=== PATIENT | female | born 1955 | race Caucasian/White ===

== ENCOUNTER 2016-09-02 13:59 | Observation (INO) | payer BC ==
--- NOTE | 2016-09-02 15:11 | RAD ---
ANKLE-RIGHT 3 VIEW History: Fall with ankle pain. Comparison: None. Findings: Views of the right ankle were obtained. There is evidence of an oblique fracture of the distal right fibular metadiaphysis with overlapping of the fracture fragments. A markedly displaced transverse fracture is noted of the base of the medial malleolus with the distal tibial plafond and dislocated in a medial direction in relationship to its typical orientation adjacent to the talar dome. The talus itself appears to be appropriate. Anterior and posterior calcaneal enthesophytes are identified. Impression: 1. A displaced oblique distal right fibular metadiaphyseal fracture with overlapping of the fracture fragments. 2. A displaced transverse fracture of the base of the medial malleolus with medial dislocation of the distal tibial plafond to the adjacent talar dome. 3. Diffuse soft tissue swelling. 4. Anterior and posterior calcaneal spurs.
--- NOTE | 2016-09-02 15:54 | RAD ---
RIGHT KNEE 4 VIEWS HISTORY: Ground-level fall, right knee pain. Frontal, crosstable lateral, and bilateral oblique views of the right knee. COMPARISON: None. ALIGNMENT: Grossly unremarkable.. JOINT SPACES: Largely preserved. Moderate osteophyte formation.. JOINT EFFUSION: Trace effusion suggested.. CALCIFICATIONS: No abnormal calcifications noted. FRACTURE: No displaced acute fracture. IMPRESSION: Early osteoarthritic change of the right knee without displaced acute fracture, malalignment, or gross joint space narrowing. Trace joint effusion is evident.
[2016-09-02] MEDS ORDERED: HYDROMORPHONE HCL 1 MG/ML SYRINGE ONE (15:57)
[2016-09-02] MEDS ORDERED: BISACODYL 10 MG SUP PR PRN (19:11)
[2016-09-02] MEDS ORDERED: BLISTEX LIPSTICK 1 EACH TP PRN (19:11)
[2016-09-02] MEDS ORDERED: MENTHOL/CETYLPYRD 1 EACH LOZENGE PO PRN (19:11)
[2016-09-02] MEDS ORDERED: SODIUM CHLORIDE 0.9% 100 ML IV PRN (19:11)
[2016-09-02] MEDS ORDERED: BISACODYL 5 MG TABLET.EC PO PRN (19:11)
[2016-09-02] MEDS ORDERED: MAGNESIUM HYDROXIDE 30 ML UDCUP PO PRN (19:11)
[2016-09-02 19:37] LABS: ABSOLUTE NEUTROPHIL COUNT 10.5 K/mm3 (1.8-7.7); BASO % 0.2 % (0.2-1.0); EOS # 0.1 (0.0-0.5); EOS % 0.5 % (0.9-2.9); HEMATOCRIT 38.4 % (37.0-47.0); HEMOGLOBIN 12.9 gm/l (12.0-16.0); IMM NEUT% 0.3 % (0-1); LYMPH # 1.4 (1.0-4.8); LYMPH % 10.7 % (15-45); MEAN CELL VOLUME 88.9 fl (81.0-99.0); MEAN CORPUSCULAR HEMOGLOBIN 29.9 pg (27.0-31.0); MEAN CORPUSCULAR HGB CONC 33.6 g/dl (33.0-37.0); MEAN PLATELET VOLUME 8.9 fl (7.4-10.4); MONO # 0.7 (0.0-0.8); MONO % 5.5 % (4-12); NEUT % 82.8 % (43-75); PLATELET COUNT 255 K/mm3 (130-400); RED CELL DISTRIBUTION WIDTH 13.2 % (11.5-14.5)
[2016-09-02 20:03] LABS: CALCIUM 9.2 mg/dL (8.6-10.3)
[2016-09-02 20:10] LABS: INR 1.05
[2016-09-02] MEDS ORDERED: HYDROMORPHONE HCL 2 MG/ML SYRINGE IV ONE (20:12)
[2016-09-02] MEDS: CARVEDILOL 25 MG TABLET PO SCH (20:25)
[2016-09-02] MEDS: DOCUSATE SODIUM 100 MG CAPSULE PO SCH (20:25)
[2016-09-02] MEDS: OXYCODONE HCL 5 MG TABLET PO PRN ×2 (20:26→22:24)
[2016-09-02] MEDS: ACETAMINOPHEN 325 MG TABLET PO PRN (20:26)
[2016-09-02 20:38] VITALS: BMI 57.7
[2016-09-02] MEDS ORDERED: HYDROMORPHONE HCL 2 MG/ML SYRINGE IV PRN (21:21)
[2016-09-03] MEDS: ACETAMINOPHEN 325 MG TABLET PO PRN (02:41)
[2016-09-03] MEDS: OXYCODONE HCL 5 MG TABLET PO PRN ×5 (02:41→23:23)
--- NOTE | 2016-09-03 07:45 | HP ---
Eleni Rojas : 1955 CHIEF COMPLAINT: Ankle pain. HISTORY OF PRESENT ILLNESS: The patient was preparing to go to [place] to complete her moving preparations from [place] to [place] today. She had her dogs on their leashes and they were walking down the front concrete stairs outside of her home and she fell on the last to second stair. She landed on her leg with the ankle rolled and she had instant pain. She was unable to bear weight due to the pain and called EMS who transported her to the emergency department. In the emergency department she was found to have a trimalleolar fracture. She has no other complaints today except for the ankle pain. She denies any lightheadedness, dizziness, chest pain, or shortness of breath prior to the fall. She did not blackout. REVIEW OF SYSTEMS: General: No fever or chills. ENT: No congestion or throat pain. Cardiovascular: Denies chest pain or pressure. Respiratory: No difficulty in breathing, shortness of breath, or cough. Abdomen: No nausea, vomiting, or abdominal pain. Musculoskeletal: Ankle pain. Neurologic: No lightheadedness or dizziness. No numbness or tingling. PAST MEDICAL HISTORY: Includes cardiomyopathy and hypertension. Uterine cancer in 1993. PAST SURGICAL HISTORY: Hysterectomy, cholecystectomy, and a recent abdominal hernia repair. ALLERGIES: None. MEDICATIONS: Include: 1. Carvedilol. 2. Lisinopril. 3. Spironolactone. 4. Furosemide. 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. She is moving up here to be with her sister. She had never been . No children. Never has had any alcohol or tobacco use. She will be residing in a modular home on her sisters property in [place] when she completes her move. FAMILY MEDICAL HISTORY: Noncontributory. There has been no early fractures in older relatives to indicate a risk factor for osteoporosis. PHYSICAL EXAMINATION: VITAL SIGNS: Temperature 98.9, blood pressure 152/74, heart rate 68. saturating 98% on room air. GENERAL: Alert and oriented in no acute distress, cooperative, conversant, morbidly obese. HEENT: Normocephalic, atraumatic. No tenderness to palpation. Her mucous membranes are moist. Pupils are equal, round, and reactive. Her extraocular muscles are intact. There is no scleral icterus or conjunctival injection. NECK: Supple. Trachea midline. CARDIOVASCULAR: Positive S1, S2. It is regular. She has faint palpable pulses bilaterally radially. She has brisk capillary refill bilateral toes. Heart rate is quiet and distant. RESPIRATORY: Clear to auscultation bilaterally. No rhonchi or wheezing. ABDOMEN: Soft, nontender, no distention, rebound, no guarding. MUSCULOSKELETAL: Moving upper extremities and left lower extremity without difficulty. Right lower extremity with splint to knee. Knee proximal is nontender. She can wiggle her toes in the splint. NEUORLOGIC: She is alert and oriented. LABORATORY STUDIES: Not obtained in the emergency department. DIAGNOSTICS: Ankle x-ray shows displaced oblique distal right fibular metadiaphyseal fracture with overlapping fracture fragments, displaced transverse fracture of the base of the medial malleolus with medial dislocation of the distal tibular, diffuse soft tissue swelling, anterior and posterior calcaneal spurs. Right knee x-ray showed early osteoarthritic change without displaced acute fracture, malalignment, or gross joint space narrowing, trace effusion evident. ASSESSMENT AND PLAN: 1. This is a 61-year-old female with acute trimalleolar fracture who is unable to ambulate on crutches and uncomfortable going home alone. Being admitted for monitoring and orthopedic consult for surgical planning. We will obtain laboratory studies and an EKG. Without history of tobacco smoke or prior lung disease will not obtain chest x-ray at this time. With the patient's history of cardiomyopathy she has a known EKG abnormality and she was evaluated in May for it by her cell biologist for surgical planning for her hernia repair. We will obtain medical records from her cell biologist to help with surgical planning and preoperative evaluation. Appreciate orthopedic consult. 2. Cardiomyopathy. We will continue her home medications. Prior echocardiogram shows an ejection fraction of 45%. She had surgical preoperative evaluation from her cell biologist in May for hernia repair. We will obtain his most recent office records. 3. Hypertension. Slightly elevated on exam today, it could be due to pain and not taking her evening medication as of yet. Medications include aspirin along with the others. 4. Morbid obese. Complicates medical care with rehabilitation needs and cares. JOB: [id number]
[2016-09-03] MEDS ORDERED: POLYETHYLENE GLYCOL 3350 17 G POWD.SUSP PO PRN (07:54)
--- NOTE | 2016-09-03 08:21 | PDOC36 ---
Provider Note Note: 61 yo female with GLF yesterday afternoon sustaining right ankle fx/ dislocation. This was treated in ER with closed reduction and immobilization. She was admitted to Hospitalist service to assist with placement issues and I was asked to see her with respect to orthopedic management. Seen/Examined- consult note dictated Imp- right ankle fx/dislocation Plan- needs post reduction xrays which will be done this AM to assure adequate reduction injury discussed- will need ORIF when soft tissues will accommodate. may need ICF depending on mobility will check in office next week
--- NOTE | 2016-09-03 08:21 | PDOC43 ---
- Subjective Chief Complaint: ankle fracture Patient awake, her leg is painful and she did not get any sleep. Her silva is sore from the fall. She denies any chest pain, abdominal pain or shortness of breath. Subjective: Reports Urinating Without Difficulty, Denies Pain Tolerable, Denies Shortness of Breath, Denies Cough, Denies Chest Pain, Denies Abdominal Pain, Denies Nausea, Denies Vomiting - Objective Vital Signs Temperature 98.6 F 09/03/16 07:37 Pulse Rate 77 09/03/16 07:37 Respiratory Rate 20 09/03/16 07:37 Blood Pressure 126/64 09/03/16 07:37 O2 Saturation by Pulse Oximetry 98 09/03/16 07:37 Oxygen Delivery Method Room Air Oxygen Flow Rate 0 Intake and Output 09/01/16 09/02/16 09/03/16 23:59 23:59 23:59 Intake Total 450 Balance 450 General: Alert, Oriented x3, Cooperative, Other (morbidly obese), No Acute Distress HEENT: Atraumatic, PERRLA, EOMI, Mucous membr. moist/pink Lungs: Clear to Auscultation Bilaterally, Normal Air Movement Cardiovascular: Regular Rate and Rhythm, Normal S1, Normal S2 (distant, toes with brisk capillary refill) Abdomen: Soft, Non-Distended, No Rigid, No Tenderness, No Rebounding Extremities: Tenderness, Other (RLE with splint, toes mobile), No Cyanosis, No Edema Neurological: Normal Speech, Other (sensation intact in right toes) Psych/Mental Status: Normal Mood Laboratory 09/02/16 19:28 09/02/16 19:28 09/02/16 19:28 Estimated GFR 102 H Current Medications: Current meds reviewed in EMR. - Problems: Assessment/Plan (1) Bimalleolar fracture of right ankle Qualifiers: Encounter type: initial encounter Fracture type: closed Qualifier Code: (S82.841A) Displaced bimalleolar fracture of right lower leg, initial encounter for closed fracture Status: AcuteAssessment/Plan: following a fall. She tripped over one her dogs while walking down stairs. She is low risk for osteoporosis but will need to F/U as an outpatient surgical planning with orthopedics. LAbs and EKG obtained overnight. DC planning following PT/OT evaluation if she can return home with knee scooter or need SNIF. She cannot tolerate the use of crutches (2) Cardiomyopathy Qualifiers: Cardiomyopathy type: unspecified Qualifier Code: (I42.9) Cardiomyopathy , unspecified Status: ChronicAssessment/Plan: with known EKG changes. Maintain home medications. 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
--- NOTE | 2016-09-03 10:24 | RAD ---
ANKLE-RIGHT 3 VIEW COMPARISON: Right ankle 3 views, 09/02/2016 HISTORY: Right ankle displaced bimalleolar fracture. FINDINGS Views: Right ankle AP, mortise, lateral. Bones: No change. Lateral bimalleolar fracture dislocation. Joints: Asymmetry of the ankle joint Soft tissues: Normal IMPRESSION: 1. No change. Laterally displaced bimalleolar fracture dislocation of the right ankle.
[2016-09-03] MEDS: LISINOPRIL 20 MG TABLET PO SCH (10:27)
[2016-09-03] MEDS: SPIRONOLACTONE 25 MG TABLET PO SCH (10:27)
[2016-09-03] MEDS: FUROSEMIDE 20 MG TABLET PO SCH (10:28)
[2016-09-03] MEDS: ASPIRIN (ENTERIC COATED) 81 MG TABLET.EC PO SCH (10:28)
[2016-09-03] MEDS: CARVEDILOL 25 MG TABLET PO SCH ×2 (10:28→20:27)
[2016-09-03] MEDS: DOCUSATE SODIUM 100 MG CAPSULE PO SCH ×2 (10:28→20:28)
[2016-09-03] MEDS: LACTATED RINGERS 1,000 ML IV SCH (10:31)
[2016-09-03] MEDS ORDERED: PUMP TUBING ONE (10:33)
[2016-09-03] MEDS ORDERED: LACTATED RINGERS 1,000 ML ONE ×2 (11:58→13:49)
[2016-09-03] MEDS ORDERED: IV START KIT ONE ×2 (11:59→22:13)
[2016-09-03] MEDS ORDERED: PROPOFOL 20 ML IV ONE ×2 (12:30→13:00)
[2016-09-03] MEDS ORDERED: KETAMINE HCL UD SYRINGE 100 MG/2 ML IV ONE (12:30)
--- NOTE | 2016-09-03 13:12 | PCMBPN ---
Brief Post Op Note: Date of Procedure: 09/03/16 Start Time: 1245 Preoperative Diagnosis: 1. right ankle fracture Postoperative Diagnosis: 1. Same Procedure: closed reduction and splinting of right ankle fracture Surgeon: Milton Jessica MD Assist: Shade Starkey PA-C Anesthesia: Abe Kaur Findings: ankle reduced and splinted, stable Condition: stable to floor Complications: none IV Fluids: 500 mLs of LR Urine Output: 0 mLs Estimated Blood Loss: 0 mLs Tourniquet Time: 0 Specimens: none Implants: none; L&U plaster splint Drains: none Milton Jessica MD
[2016-09-03] MEDS ORDERED: FENTANYL 100 MCG/2 ML VIAL ONE ×3 (13:13→13:32)
[2016-09-03] MEDS ORDERED: HYDROMORPHONE HCL 2 MG/ML SYRINGE ONE (13:21)
[2016-09-03] MEDS ORDERED: KETOROLAC TROMETHAMINE 30 MG/ML 1 ML VIAL ONE (13:22)
[2016-09-03] MEDS ORDERED: ONDANSETRON 4 MG/2ML 2 ML VIAL IV PRN (13:28)
[2016-09-03] MEDS ORDERED: PROMETHAZINE HCL 25 MG/ML VIAL IM PRN (13:28)
[2016-09-03] MEDS ORDERED: ATROPINE SULFATE 0.4 MG/1 ML VIAL IV PRN (13:28)
[2016-09-03] MEDS ORDERED: FENTANYL 100 MCG/2 ML VIAL IV PRN (13:28)
[2016-09-03] MEDS ORDERED: MEPERIDINE 25 MG/ML SYRINGE IV PRN (13:28)
[2016-09-03] MEDS ORDERED: NALOXONE HCL 0.4 MG/ML VIAL IV PRN (13:28)
[2016-09-03] MEDS ORDERED: HYDRALAZINE HCL 20 MG/1 ML VIAL IV PRN (13:28)
[2016-09-03] MEDS ORDERED: HYDROMORPHONE HCL 1 MG/ML SYRINGE IV PRN (13:28)
[2016-09-03] MEDS ORDERED: LABETALOL HCL 5 MG/ML 20ML VIAL IV PRN (13:28)
[2016-09-03] MEDS ORDERED: LACTATED RINGERS 1,000 ML IV SCH (13:30)
[2016-09-03] MEDS ORDERED: HYDROMORPHONE HCL 1 MG/ML SYRINGE ONE (13:55)
--- NOTE | 2016-09-03 14:09 | RAD ---
CHEST-AP BEDSIDE COMPARISON: None HISTORY: 7-year-old female. Preop for right ankle bimalleolar fracture dislocation surgery. FINDINGS: Views: Frontal chest. Lungs: The lungs are clear. Heart and vessels: Cardiomegaly. Trachea and bronchi: Normal Mediastinum and antolin: Normal Costophrenic sulci: Normal Chest wall and bones: Normal Upper abdomen: Normal. IMPRESSION: Cardiomegaly.
--- NOTE | 2016-09-03 14:15 | RAD ---
ANKLE LIMITED RIGHT 1-2 VIEWS COMPARISON: Right ankle 3 views, 09/03/2016 HISTORY: Intraoperative radiograph and fluoroscopy for reduction of right ankle bimalleolar fracture dislocation. Fluoroscopy time 5.2 seconds FINDINGS Views: Right ankle AP Bones: Successful closed reduction of right ankle laterally displaced bimalleolar fracture. Joints: Successful realignment of the ankle mortise. Soft tissues: Normal IMPRESSION: 1. Successful closed reduction of right ankle displaced bimalleolar fracture.
--- NOTE | 2016-09-03 14:41 | RAD ---
ANKLE LIMITED RIGHT 1-2 VIEWS 09/03/2016 at 14:15 COMPARISON: Intraoperative right ankle radiograph, 09/03/2016 at 12:18. Preoperative right ankle 3 views, 09/03/2016 at 8:36. HISTORY: Right ankle bimalleolar fracture. FINDINGS Views: Right ankle AP and lateral, taken through a splint. Bones: No change since the intraoperative radiographs. Near anatomic alignment of the bimalleolar fractures. Joints: Normal Soft tissues: Normal IMPRESSION: 1. Near anatomic alignment of the right ankle bimalleolar fractures after closed reduction.
[2016-09-03] MEDS ORDERED: HYDROMORPHONE HCL 2 MG/ML SYRINGE IV PRN (16:15)
[2016-09-03] MEDS ORDERED: SODIUM CHLORIDE 0.9% FLUSH 10 ML ONE (22:12)
[2016-09-04] MEDS ORDERED: IV START KIT ONE (00:53)
[2016-09-04] MEDS ORDERED: SODIUM CHLORIDE 0.9% FLUSH 10 ML ONE (00:53)
[2016-09-04] MEDS: LACTATED RINGERS 1,000 ML IV SCH ×2 (02:42→14:22)
[2016-09-04] MEDS: OXYCODONE HCL 5 MG TABLET PO PRN ×7 (03:16→23:34)
[2016-09-04] MEDS: FUROSEMIDE 20 MG TABLET PO SCH (08:55)
[2016-09-04] MEDS: ASPIRIN (ENTERIC COATED) 81 MG TABLET.EC PO SCH (08:55)
[2016-09-04] MEDS: ACETAMINOPHEN 325 MG TABLET PO PRN (08:55)
[2016-09-04] MEDS: SPIRONOLACTONE 25 MG TABLET PO SCH (08:55)
[2016-09-04] MEDS: CARVEDILOL 25 MG TABLET PO SCH ×2 (08:56→20:21)
[2016-09-04] MEDS: LISINOPRIL 20 MG TABLET PO SCH (08:56)
[2016-09-04] MEDS: DOCUSATE SODIUM 100 MG CAPSULE PO SCH ×2 (08:56→20:21)
--- NOTE | 2016-09-04 11:04 | PDOC43 ---
- Subjective Chief Complaint: ankle fracture Patient reports some pain difficulties , due to pain med. Not too hungry, no recent BM. Otherwise, doing ok. No respiratory c/o. - Objective Vital Signs Temperature 98.0 F 09/04/16 07:31 Pulse Rate 74 09/04/16 07:31 Respiratory Rate 18 09/04/16 07:31 Blood Pressure 148/82 09/04/16 07:31 O2 Saturation by Pulse Oximetry 96 09/04/16 07:31 Oxygen Delivery Method Room Air Oxygen Flow Rate 0 Vital Signs Last 12 Hours Temp Pulse Resp BP Pulse Ox 09/04/16 07:31 98.0 F 74 18 148/82 96 09/04/16 04:30 16 09/04/16 03:05 98.1 F 69 20 138/77 98 09/03/16 23:10 98.0 F 70 18 139/64 95 09/03/16 22:56 16 Intake and Output 09/02/16 09/03/16 09/04/16 23:59 23:59 23:59 Intake Total 850 600 Output Total 300 Balance 850 300 General: Alert, Cooperative, No Acute Distress HEENT: Atraumatic Lungs: Clear to Auscultation Bilaterally, Normal Air Movement Cardiovascular: Regular Rate and Rhythm, Other (distant) Abdomen: Soft, Normal Bowel Sounds, Non-Distended Extremities: Edema (improved) Skin: Normal Color Wound: Other (splint intact, not tight on R lower leg.) Neurological: Normal Speech Psych/Mental Status: Normal Affect, Normal Mood Laboratory 09/02/16 19:28 09/02/16 19:28 09/03/16 13:48 POC Capillary Glucose 108 H Current Medications: Current meds reviewed in EMR. Active Medications Acetaminophen (Tylenol) 650 mg PO Q6H PRN PRN Reason: Pain or Temperature > 100.5 F Last Admin: 09/04/16 08:55 Dose: 650 mg Aspirin (Ecotrin) 81 mg PO DAILY FADI Last Admin: 09/04/16 08:55 Dose: 81 mg Benzocaine/Menthol (Cepacol) 1 each PO PRN PRN PRN Reason: Sore Throat Bisacodyl (Dulcolax) 10 mg ME DAILY PRN PRN Reason: Constipation Bisacodyl (Dulcolax) 5 mg PO DAILY PRN PRN Reason: Constipation Carvedilol (Coreg) 25 mg PO BID [facility] Last Admin: 09/04/16 08:56 Dose: 25 mg Docusate Sodium (Colace) 100 mg PO BID [facility] Last Admin: 09/04/16 08:56 Dose: 100 mg Furosemide (Lasix) 20 mg PO DAILY [facility] Last Admin: 09/04/16 08:55 Dose: Not Given Sodium Chloride (Sodium Chloride 0.9%) 100 mls @ 25 mls/hr IV PRN PRN PRN Reason: Flush Lactated Ringer's (Lactated Ringers) 1,000 mls @ 75 mls/hr IV .[id number] [facility] Last Admin: 09/04/16 02:42 Dose: Not Given Lisinopril (Prinivil) 20 mg PO DAILY [facility] Last Admin: 09/04/16 08:56 Dose: 20 mg Magnesium Hydroxide (Milk Of Magnesia) 30 ml PO DAILY PRN PRN Reason: Constipation Oxycodone HCl (Roxicodone) 5 - 10 mg PO Q4H PRN PRN Reason: Pain Last Admin: 09/04/16 06:22 Dose: 5 mg Petrolatum/Paraffin/Mineral Oil (Blistex) 1 each TP PRN PRN PRN Reason: Dry and/or chapped lips Polyethylene Glycol/Electrolytes (Miralax) 17 g PO DAILY PRN PRN Reason: Constipation Sodium Chloride (Normal Saline 10ml Flush) 10 - 50 ml IV PRN PRN PRN Reason: IV Flush Last Admin: 09/02/16 20:17 Dose: 20 ml Sodium Chloride (Normal Saline 10ml Flush) 10 ml IV Q8HR [facility] Last Admin: 09/04/16 01:00 Dose: Not Given Spironolactone (Aldactone) 25 mg PO DAILY [facility] Last Admin: 09/04/16 08:55 Dose: 25 mg - Problems: Assessment/Plan (1) Bimalleolar fracture of right ankle Qualifiers: Encounter type: initial encounter Fracture type: closed Qualifier Code: (S82.841A) Displaced bimalleolar fracture of right lower leg, initial encounter for closed fracture Status: AcuteAssessment/Plan: following a fall. She tripped over one her dogs while walking down stairs. She is low risk for osteoporosis but will need to F/U as an outpatient Appreciate orthopedics. DC planning following PT/OT evaluation, anticipate need for SNF. She cannot tolerate the use of crutches due to BMI, strength issues. (2) Cardiomyopathy Qualifiers: Cardiomyopathy type: unspecified Qualifier Code: (I42.9) Cardiomyopathy , unspecified Status: ChronicAssessment/Plan: with known EKG changes. Maintain home medications. Working on obtaining pediatric allergist records. (3) Obesity, morbid, BMI 50 or higher Status: ChronicAssessment/Plan: complicates medical care, surgical planning and rehab potential (4) Hypertension Qualifiers: Hypertension type: essential hypertension Qualifier Code: (I10) Essential (primary) hypertension Status: ChronicAssessment/Plan: stable. VTE Prophylaxis: on asa Disposition: anticipate going to SNF , poss 09/05
--- NOTE | 2016-09-04 11:49 | CONS ---
DATE OF CONSULTATION: 09/03/2016 PADMINI BETTS : 1955 [id number] REASON FOR CONSULTATION: Right ankle injury HISTORY: Patient is a 61-year-old morbidly obese female who slipped and fell on concrete steps outside of her manufactured home in [place] rolling the right ankle with immediate pain and inability to ambulate. She was transported by EMS to the ED, radiographs obtained and demonstrated a bimalleolar ankle fracture-dislocation. This was reportedly treated with a closed reduction, splint immobilization and then admission to the Hospitalist's service for pain control and consideration of placement as she did not feel capable of returning home where she lives alone. I was asked to see her with respect to evaluation and discussion of management options with respect to her ankle. She has no recent illnesses. She did have a ventral hernia repair in [place] in April, which she states was complicated by an infection, but was released and it is "doing well". She also has a history of cardiomyopathy, uncertain significance. 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 In addition, she has hypertension. She denies diabetes. PHYSICAL EXAMINATION: Patient is an obese female in no acute distress, normal-appearing mood and affect. She answers questions appropriately. She is lying in bed relatively comfortable. Physical exam of the right lower extremity shows a splint in place. This is unwrapped in order to check soft tissues. There is significant swelling. The compartments are soft. Skin integrity appears well preserved, no blistering. She is able to flex and extend her toes and has no obvious sensory deficit with brisk capillary refill. She is NT to palpation about the knee with no effusion. She tolerates passive flexion well. RADIOGRAPHS: Radiographs, as noted above, demonstrate widely displaced bimalleolar ankle fracture with significant lateral subluxation of the talus. Probable supination external rotation pattern. Knee films show lateral greater than medial narrowing with marginal spurring. No evidence of acute bony injury. There are no post reduction ankle films. I did obtain some STAT films after seeing her which showed persistence of the lateral subluxation of the talus and displacement. IMPRESSION: 1. Right ankle fracture dislocation with significant displacement . 2. Comorbidities including cardiomyopathy as well as morbid obesity and hypertension. PLAN: I talked to the patient regarding my thoughts and findings. She does not have soft tissue that is amenable to definitive management at this point. I do think it would be beneficial to improve her current reduction status. I have talked with her about this. Would recommend reduction under anesthesia and probable splint immobilization, although consideration of external fixator dependent on stability could be entertained. I will talk with my partner, Dr. Jessica, who is in the OR today to see if he can assist with management of this. If not, I could do that following the end of clinic. We will keep her NPO in the meantime. Definitive management will be dependent on improvement of the soft tissue envelope, may take 2-3 weeks. Need to maintain elevation, strict nonweightbearing. We will have OT and PT work with her on transfer training. Will likely need a wheelchair, may need a knee scooter and a walker. She does not feel that she can ambulate with crutches. She may end up, depending on how she progresses, needing a care facility during the interim. ADRIEL:yessy CC: Loni Bradford
[2016-09-05] MEDS: OXYCODONE HCL 5 MG TABLET PO PRN ×4 (00:10→12:30)
[2016-09-05] MEDS: ACETAMINOPHEN 325 MG TABLET PO PRN (00:10)
[2016-09-05] MEDS: HYDROXYZINE PAMOATE 25 MG CAPSULE PO PRN ×2 (00:18→12:49)
--- NOTE | 2016-09-05 06:25 | PDOC43 ---
- Subjective Chief Complaint: ankle fracture Patient reports some pain at ankle, vistaril seemed to help, able to sleep up to 3 hrs. No respiratory or GI c/o. Did get up 4 times yesterday. No new c/o, hoping to go to SNF today, but waiting to hear about this. She notes her 5th toe feels snug, but overall, the swelling of the leg is much better. - Objective Vital Signs Temperature 98.1 F 09/05/16 01:20 Pulse Rate 75 09/05/16 01:20 Respiratory Rate 20 09/05/16 01:20 Blood Pressure 122/75 09/05/16 01:20 O2 Saturation by Pulse Oximetry 95 09/05/16 01:20 Oxygen Delivery Method Room Air Oxygen Flow Rate 0 Vital Signs Last 12 Hours Temp Pulse Resp BP Pulse Ox 09/05/16 01:20 98.1 F 75 20 122/75 95 09/05/16 01:00 20 09/04/16 20:20 20 09/04/16 19:15 97.9 F 72 20 134/74 96 Intake and Output 09/03/16 09/04/16 09/05/16 23:59 23:59 23:59 Intake Total 850 1100 600 Output Total 950 200 Balance 850 150 400 General: Alert, Cooperative, No Acute Distress HEENT: Atraumatic Lungs: Clear to Auscultation Bilaterally, Normal Air Movement Cardiovascular: Regular Rate and Rhythm Abdomen: Soft, Normal Bowel Sounds, Non-Distended, No Tenderness, No Rebounding , No Involuntary Guarding Extremities: Other (Cast/splint with some looseness at superior aspect. Toes with good color, some (resolving) bruising noted on hallux and 2nd toe.) Skin: Normal Color Neurological: Normal Speech Psych/Mental Status: Normal Affect Laboratory 09/02/16 19:28 09/02/16 19:28 Current Medications: Current meds reviewed in EMR. Active Medications Acetaminophen (Tylenol) 650 mg PO Q6H PRN PRN Reason: Pain or Temperature > 100.5 F Last Admin: 09/05/16 00:10 Dose: 650 mg Aspirin (Ecotrin) 81 mg PO DAILY [facility] Last Admin: 09/04/16 08:55 Dose: 81 mg Benzocaine/Menthol (Cepacol) 1 each PO PRN PRN PRN Reason: Sore Throat Bisacodyl (Dulcolax) 10 mg [place] DAILY PRN PRN Reason: Constipation Bisacodyl (Dulcolax) 5 mg PO DAILY PRN PRN Reason: Constipation Carvedilol (Coreg) 25 mg PO BID [facility] Last Admin: 09/04/16 20:21 Dose: 25 mg Docusate Sodium (Colace) 100 mg PO BID [facility] Last Admin: 09/04/16 20:21 Dose: 100 mg Furosemide (Lasix) 20 mg PO DAILY [facility] Last Admin: 09/04/16 08:55 Dose: Not Given Hydroxyzine Pamoate (Vistaril) 25 mg PO Q6H PRN PRN Reason: Itching Last Admin: 09/05/16 00:18 Dose: 25 mg Sodium Chloride (Sodium Chloride 0.9%) 100 mls @ 25 mls/hr IV PRN PRN PRN Reason: Flush Lisinopril (Prinivil) 20 mg PO DAILY [facility] Last Admin: 09/04/16 08:56 Dose: 20 mg Magnesium Hydroxide (Milk Of Magnesia) 30 ml PO DAILY PRN PRN Reason: Constipation Oxycodone HCl (Roxicodone) 5 - 10 mg PO Q4H PRN PRN Reason: Pain Last Admin: 09/05/16 04:09 Dose: 10 mg Petrolatum/Paraffin/Mineral Oil (Blistex) 1 each TP PRN PRN PRN Reason: Dry and/or chapped lips Polyethylene Glycol/Electrolytes (Miralax) 17 g PO DAILY PRN PRN Reason: Constipation Sodium Chloride (Normal Saline 10ml Flush) 10 - 50 ml IV PRN PRN PRN Reason: IV Flush Last Admin: 09/02/16 20:17 Dose: 20 ml Sodium Chloride (Normal Saline 10ml Flush) 10 ml IV Q8HR [facility] Last Admin: 09/05/16 01:26 Dose: Not Given Spironolactone (Aldactone) 25 mg PO DAILY [facility] Last Admin: 09/04/16 08:55 Dose: 25 mg - Problems: Assessment/Plan (1) Bimalleolar fracture of right ankle Qualifiers: Encounter type: initial encounter Fracture type: closed Qualifier Code: (S82.841A) Displaced bimalleolar fracture of right lower leg, initial encounter for closed fracture Status: AcuteAssessment/Plan: following a fall. She tripped over one her dogs while walking down stairs. She is low risk for osteoporosis but will need to F/U as an outpatient Appreciate orthopedics. DC planning following PT/OT evaluation, anticipate SNF 09/05. (2) Cardiomyopathy Qualifiers: Cardiomyopathy type: unspecified Qualifier Code: (I42.9) Cardiomyopathy , unspecified Status: ChronicAssessment/Plan: Appears stable. with known EKG changes. Maintain home medications. Requested housekeeping manager records, but don't anticipate they will arrive before DC (3) Obesity, morbid, BMI 50 or higher Status: ChronicAssessment/Plan: complicates medical care, surgical planning and rehab potential (4) Hypertension Qualifiers: Hypertension type: essential hypertension Qualifier Code: (I10) Essential (primary) hypertension Status: ChronicAssessment/Plan: stable, controlled. VTE Prophylaxis: on asa, mechanical tx. Disposition: anticipate going to SNF 09/05
[2016-09-05 07:55] VITALS: BP 119/70
--- NOTE | 2016-09-05 08:19 | DS ---
Almaz Rojas [id number] DATE OF ADMISSION: 09/02/2016 DATE OF DISCHARGE: 09/05/2016 anticipated. CONSULTATIONS: With Dr. Jessica and Dr. Solano PROCEDURES: Closed reduction of bimalleolar ankle fracture. DISCHARGE DIAGNOSES: 1. Right bimalleolar ankle fracture. 2. History of cardiomyopathy. 3. Hypertension. 4. Body mass index of 57.7. REASON FOR ADMISSION: The patient is a 61-year-old female who is in the process of moving from [place] to [place]. She had her dogs on leashes as they were walking down the front concrete stairs outside their home she fell on the second to last stair. She landed on her leg, ankle rolled, had pain, was unable to bear weight, and called EMS who transported her to the emergency department. In the emergency department she was felt to have a bimalleolar fracture. She was seen in the emergency room and she was unable to ambulate on crutches and felt uncomfortable going home and was referred to the hospitalist service for monitoring and orthopedic consultation. Her previous echocardiogram showed an ejection fraction of 45% and records were requested and are currently pending. She had admission labs which showed a white blood cell count of 12.7, hemoglobin 12.9, platelets 255. A INR of 1.05. Sodium 138, potassium 4.3, BUN 12, creatinine 0.6, glucose 115, calcium 9.2. A chest x-ray showed cardiomegaly, but otherwise was unremarkable. Orthopedics was consulted and Dr. Jessica performed a closed reduction on 09/03/2016. Postoperative appearance of the x-ray was near anatomic. Patient had some pain control issues postoperatively, but was able to cooperate enough with physical therapy and occupational therapy that she was felt to be a candidate to go a [facility] facility. She is anticipated to go today, 09/05/2016. DISCHARGE MEDICATIONS: Are anticipated to be: 1. Aspirin 81 mg daily by mouth daily. 2. Carvedilol 25 mg by mouth twice daily. 3. Lasix 20 mg by mouth daily. 4. Vistaril 25 mg by mouth every 6 hours as needed. 5. Lisinopril 20 mg by mouth daily. 6. Oxycodone 5 to 10 mg by mouth every 4 hours as needed. 7. MiraLax 17 gm by mouth daily. 8. Senna 8.6 mg by mouth twice daily as needed. 9. Spironolactone 25 mg daily. FOLLOWUP: She has follow-up with [facility] in [place] as well as with Dr. Jessica on 09/10/2016 at 10:00 a.m. ACTIVITY: Will be nonweightbearing on the right leg. She is to keep the right leg elevated as much as possible. Activity will otherwise be as tolerated. DIET: Regular. VITAL SIGNS: Morning of discharge is temperature 98.1, pulse 75, blood pressure 122/75, respirations 20, 95% saturation on room air. JOB: [id number] CC: Dr. Russ Jessica [facility] in [place]
[2016-09-05] MEDS: CARVEDILOL 25 MG TABLET PO SCH (10:26)
[2016-09-05] MEDS: LISINOPRIL 20 MG TABLET PO SCH (10:26)
[2016-09-05] MEDS: ASPIRIN (ENTERIC COATED) 81 MG TABLET.EC PO SCH (10:26)
[2016-09-05] MEDS: DOCUSATE SODIUM 100 MG CAPSULE PO SCH (10:26)
[2016-09-05] MEDS: SPIRONOLACTONE 25 MG TABLET PO SCH (10:26)
[2016-09-05] MEDS: FUROSEMIDE 20 MG TABLET PO SCH (10:26)
--- NOTE | 2016-09-05 12:09 | OP ---
Almaz BETTS : 01/13/1967 [id number] DATE OF PROCEDURE: September 03, 2016 PREOPERATIVE DIAGNOSIS: Right bimalleolar ankle fracture. POSTOPERATIVE DIAGNOSIS: Right bimalleolar ankle fracture. PROCEDURE PERFORMED: CLOSED REDUCTION AND SPLINTING OF RIGHT ANKLE FRACTURE. SURGEON: Milton Jessica M.D. POLE PEELING MACHINE OPERATOR HELPER: Shade Starkey P.A.-C. ANESTHESIA: Courtney Mace.N.Shashi FINDINGS: The ankle was reduced and splinted, stable on leaving the operating room. INDICATIONS: This is a 61-year-old female who sustained an injury yesterday when she fell. She was seen in the emergency department with a right ankle fracture. She was admitted by the hospitalist service for social reasons. Orthopedics was consulted. X-rays at that time demonstrated inadequate reduction and so she was counseled that reduction and splinting would improve her outcome. The risks, benefits and alternatives were discussed and she elected to proceed with surgery. Informed consent was obtained and documented in the chart and she was taken to the operating room the same day. DESCRIPTION OF PROCEDURE: The patient was marked with an indelible marker by the operating surgeon. She was taken to the operating room. Intravenous sedation was administered. An operative time out was performed and confirmed by all members of the operative team. Her previous splint was removed and a reduction maneuver was performed bringing the patient's foot into internal rotation adduction and dorsiflexion. Images were obtained which demonstrated reduced talus. With the foot held in this position an L&U splint was applied and molded to prevent displacement. Final images were obtained which showed a reduced tib-talar joint. The patient was awakened from her anesthesia, taken to the recovery room and then transferred back to the floor. She will return in 10 to 14 days for open reduction internal fixation. Job [id number] Cc: [facility]
== END 2016-09-05 14:35 ==
LOC: ED 13:59 → INTOOBSV 17:44 → MS 17:44
PROVIDERS: ADMIT Family Medicine; ATTEND Family Medicine
PROC: 0SSF05Z Reposition Right Ankle Joint with External Fixation Device, Open Approach (ICD-10-PCS; principal; 2016-09-03)
DX: S82.851A Displaced trimalleolar fracture of right lower leg, initial encounter for closed fracture (principal); E66.01 Morbid (severe) obesity due to excess calories; I42.9 Cardiomyopathy, unspecified; K44.9 Diaphragmatic hernia without obstruction or gangrene; I10 Essential (primary) hypertension; W10.9XXA Fall (on) (from) unspecified stairs and steps, initial encounter; Y92.029 Unspecified place in mobile home as the place of occurrence of the external cause; Z68.43 Body mass index [BMI] 50.0-59.9, adult
CPT/HCPCS: 85025; 80048; 85730; 85610; 36415 ×2; 73610 ×2; 73600 ×2; 76000; 71010; 73564; 97110; 97530; 97162; 97535; 97165; 99285; 29515; 96374; 93005; 99284; 27810; A9270 ×37; J0461; J1170 ×6; J3010 ×3; J1885; J7120 ×3

== ENCOUNTER 2016-09-16 13:35 | Day surgery (SDC) | payer BC ==
--- NOTE | 2016-09-15 14:38 | HP ---
DATE OF CLINIC: 09/11/2016 PADMINI ROJAS : 1955 PLANNED PROCEDURE: ORIF Right Ankle Bimalleolar Fracture DATE OF PROCEDURE: September 16, 2016 SURGEON: Souleymane Solano M.D. PCP: Gregory Roberts MD, [place] [employer] Owner Operator: Ren Lux MD, Scot REFERRED HERE [facility]. HISTORY OF PRESENT ILLNESS Padmini Rojas is a 61 year old female. * Medication list reviewed with patient allergy list reviewed with patient. Ms. Rojas is a new patient to [facility]. She is a 61-year-old female who was seen in the ED at [facility] by Dr. Solano for consultation on a right ankle fracture on 09/02/16. Patient is a 61-year-old female who slipped and fell on concrete on the steps outside of her home in [place]. She rolled the right ankle, had immediate pain and the inability to ambulate. She was transported by EMS to the ED where radiographs were obtained and Dr. Solano was consulted. At that point in time patient had too much soft tissue swelling to undergo immediate ORIF. She remained on the hospital floor until her ankle was reduced by Dr. Jessica. She is in today for the first time to our clinic for further evaluation and definitive management with upcoming ORIF. Patient presents today in good spirits. She does feel her swelling has been residing somewhat. She states at this point it has started to loosen up today. Her pain is well controlled with oxycodone, 1-2 tabs presently, every 6-8 hours or so. She has not had any fever, she does feel some burning on the posterior aspect of her heel. She has been able to transfer in and out of the wheelchair and the commode without difficulty. She has not lost sensation to her toes and she is able to continually move them. Patient denies any recent illness or change in her baseline status of health. She does have a history of cardiomyopathy that occasionally gives her orthopnea if she lies back quickly. Most of the time she can lie on her back without pillows or side sleep without shortness of breath. She also has hypertension and well controlled asthma. She has not had any prior complications with surgical procedures, no history of blood clots or bleeds. CURRENT MEDICATION * Adult Aspirin EC Low Strength 81 MG Tablet Delayed Release 1 once a day 0 days, 0 refills * Coreg CR 20 MG Capsule Extended Release 24 Hour [address] Sunil Leonard, 0 days, 0 refills * Lisinopril 20 MG Tablet [address] Isak Leonard, 0 days, 0 refills * Spironolactone 25 MG Tablet [address] Isak Leonard in [place], 0 days, 0 refills PAST MEDICAL/SURGICAL HISTORY Reported: Medical: A previous fracture Right ankle fx 09/02/16, cardiac history cardiomypathy, Hypertension, and Asthma. Surgical / Procedural: Cholecystectomy, Hernia repair 2x, and Breast surgery lump removed. Surgical: * Hysterectomy 04/1994 SOCIAL HISTORY Behavioral: No caffeine use, not a current smoker, and not chewing tobacco. Never smoked. Smoking status: Never smoker. Alcohol: No consumption of alcohol and not using alcohol. Drug Use: Not using drugs. Work: Occupation Retired. ALLERGIES * Codeine Reaction: Skin Rashes/Hives * Latex Reaction: Skin Rashes/Hives * Zithromax (Azithromycin) Reaction: Skin Rashes/Hives No reaction to anesthetics. REVIEW OF SYSTEMS Systemic: No fever and no recent weight change. Head: No head symptoms. Cardiovascular: Cardiovascular symptoms Cardiomyopathy with orthopnea. Well controlled HTN. Pulmonary: No pulmonary symptoms. Gastrointestinal: No gastrointestinal symptoms. Psychological: No psychological symptoms. Skin: No skin lesions and no rash. PHYSICAL FINDINGS * Vitals taken 09/11/2016 03:36 pm unable to get height in weight due to ankle fracture and not able to bear weight. Only able to get verbal height and weight today BP-Sitting R 129/70 mmHg 100 - 120/56 - 80 BP Cuff Size Regular Pulse Rate-Sitting 65 bpm 50 - 100 Respiration Rate 16 per min 18 - 26 Temp-Oral 97 F 96 - 101 Height 65 in 59 - 68 Weight 340 lbs 96 - 178 Body Mass Index 56.6 kg/m2 Body Surface Area 2.48 m2 Pain Level 5 Eyes: General/bilateral: * Eyes: normal. Ears, Nose, Throat: * ENT: normal. Lungs: * Normal. * Clear to auscultation. Cardiovascular: Heart Rate and Rhythm: * Normal. Heart Sounds: * Normal. Abdomen: * Normal. Neurological: Motor: * Dominant Hand = Right Hand. Skin: * Normal. This is a well-developed, well-nourished, obese, 61-year-old female presenting to the office today in no acute distress. She is alert and oriented x4 with a normal appearing mood and affect. Patient presents today in a wheelchair. She has a Sugar-Tong splint on the right leg. It is intact and in good repair, visible skin of the toes reveals well perfused tissue with normal capillary refill. The splint was loosened adequately to observe medial, lateral and anterior aspects of the ankle. There were no apparent fracture blisters. There was some swelling still present, but it did appear to be reasonably symmetric with the contralateral side. I did leave the posterior aspect of the splint intact as well as the plantar surface of the foot. No other skin abnormalities were noted, but there were diffuse varicosities. Pulses were palpable. The distal motor, sensory and vascular function was intact. RADIOGRAPHS: Initial radiographs from 09/02/16 available for review with the following impression: Displaced oblique distal right fibular metadiaphyseal fracture with overlapping of the fracture fragments. Displaced transverse fracture of the base of the medial malleolus with medial dislocation of the distal tibial plafond to the adjacent talar dome. Diffuse soft tissue swelling. Anterior and posterior calcaneal spurs. ASSESSMENT * Displaced bimalleolar fracture of lower leg PREVIOUS TESTS * Test: CBC WITH DIFF Report Date: 09/02/2016 WBC 12.7 10*3/mL High BASOPHIL 0.2 % RBC 4.32 10*6/uL NEUTROPHILS 82.8 % High MCH 29.9 pg MCHC 33.6 g/dL RDW 13.2 % MCV 88.9 fL PLATELET COUNT 255 10*3/mL IMM NEUT % 0.3 % IMM NEUT # 0.0 10*3/mL MONOCYTES 5.5 % EOSINOPHIL 0.5 % Low HCT 38.4 % HGB 12.9 g/L LYMPHOCYTE 10.7 % Low ANC 10.5 10*3/mL High * Test: PROTHROMBIN TIME Report Date: 09/02/2016 PROTIME 11.0 s INR 1.05 * Test: BASIC METABOLIC PROFILE Report Date: 09/02/2016 BUN 12 mg/dL BUN/CREAT RATIO 20 CALCIUM 9.2 mg/dL GLUCOSE 115 mg/dL High CREATININE 0.6 mg/dL SODIUM 138 meq/L POTASSIUM 4.3 meq/L CHLORIDE 103 meq/L CARBON DIOXIDE 28 meq/L ANION GAP 11 meq/L GFR 102 High * Test: PARTIAL THROMBOPLASTIN TIME Report Date: 09/03/2016 APTT 24.9 s THERAPY * Patient fall risk screen positive in a wheelchair today. * Patient eligible for fall risk assessment. * Patient received fall risk assessment. PLAN Discussed with patient in detail the limitations, expectations as well as risks and possible complications of surgery including, but not limited to wound problems or infection, neurovascular injury, continued right pain or dysfunction including the possibility of additional operative or non-operative treatment. Patient also realizes the perioperative risks including risks associated with anesthesia and would like to proceed. A full PAR conference was held, questions and concerns addressed and informed consent was obtained. Patient will be sent from my office for completion of the preoperative workup. CARE TEAM No Current PCP Family Practice Need To Load Need to Load Ph.D.Medical Genetics RS/sg
[2016-09-16] MEDS ORDERED: PROPOFOL 20 ML IV ONE ×8 (13:42→17:52)
[2016-09-16] MEDS ORDERED: LIDOCAINE 2% (PRES FREE) 5 ML VIAL ONE (13:42)
[2016-09-16] MEDS ORDERED: ROPIVACAINE 0.5% 30 ML VIAL ONE (13:47)
[2016-09-16] MEDS ORDERED: SPINAL PROCEDURAL TRAY 1 EACH ONE (13:47)
[2016-09-16] MEDS ORDERED: NERVE BLOCK PROCEDURAL TRAY 1 EACH ONE (13:47)
[2016-09-16] MEDS ORDERED: LACTATED RINGERS 1,000 ML ONE (14:18)
[2016-09-16] MEDS ORDERED: IV START KIT ONE (14:18)
[2016-09-16] MEDS ORDERED: CEFAZOLIN SODIUM 2 GRAM PREMIX 100 ML IV ONE (14:23)
[2016-09-16] MEDS ORDERED: FENTANYL 250 MCG/5 ML AMP ONE (14:29)
[2016-09-16] MEDS ORDERED: MIDAZOLAM HCL 5 MG/5 ML VIAL ONE (14:29)
[2016-09-16] MEDS ORDERED: KETAMINE HCL UD SYRINGE 100 MG/2 ML IV ONE (15:52)
[2016-09-16] MEDS ORDERED: HYDRALAZINE HCL 20 MG/1 ML VIAL IV PRN (15:57)
[2016-09-16] MEDS ORDERED: LABETALOL HCL 5 MG/ML 20ML VIAL IV PRN (15:57)
[2016-09-16] MEDS ORDERED: ONDANSETRON 4 MG/2ML 2 ML VIAL IV PRN ×2 (15:57→19:41)
[2016-09-16] MEDS ORDERED: FENTANYL 100 MCG/2 ML VIAL IV PRN (15:57)
[2016-09-16] MEDS ORDERED: NALOXONE HCL 0.4 MG/ML VIAL IV PRN (15:57)
[2016-09-16] MEDS ORDERED: PROMETHAZINE HCL 25 MG SUP PR PRN (15:57)
[2016-09-16] MEDS ORDERED: ATROPINE SULFATE 0.4 MG/1 ML VIAL IV PRN (15:57)
[2016-09-16] MEDS ORDERED: MEPERIDINE 25 MG/ML SYRINGE IV PRN (15:57)
[2016-09-16] MEDS ORDERED: HYDROMORPHONE HCL 1 MG/ML SYRINGE IV PRN ×2 (15:57→19:41)
[2016-09-16] MEDS ORDERED: LACTATED RINGERS 1,000 ML IV SCH (16:00)
[2016-09-16] MEDS ORDERED: EPHEDRINE SULFATE UD SYR 25 MG 25 MG/5 ML SYRINGE IV ONE (16:15)
[2016-09-16] MEDS ORDERED: FAMOTIDINE 10 MG/ML 2ML VIAL ONE (16:17)
[2016-09-16] MEDS ORDERED: BUPIVACAINE 0.5% (PRES FREE) 30 ML VIAL ONE (17:59)
--- NOTE | 2016-09-16 18:39 | RAD ---
ANKLE LIMITED RIGHT 1-2 VIEWS HISTORY: Intraoperative fluoroscopy. Right ankle ORIF. COMPARISONS: Plain films dating back to 09/02/2016 FINDINGS: 2 overhead fluoroscopic images are provided for review. These images demonstrate sideplate with screw fixation and partially threaded screws transfixing the patient's bimalleolar fracture. Study is limited with respect osseous detail given fluoroscopic technique. Prostatectomy time: 15.3 seconds. IMPRESSION: Intraoperative fluoroscopy as above. Please see orthopedist note regarding the procedure for further details.
--- NOTE | 2016-09-16 18:48 | PCMBPN ---
Brief Post Op Note: Date of Procedure: 09/16/16 Preoperative Diagnosis: fx/dislocation right ankle morbid obesity Postoperative Diagnosis: 1. [Same] Procedure: complex ORIF MM fx, distal fibula fx Surgeon: Souleymane Solano MD Assist:Adelina Anesthesia: spinal ([place]) Condition: stable to PAR Complications: none IV Fluids: per anesthesia Urine Output: no baltazar Estimated Blood Loss: 50 mLs Tourniquet Time: 105 minutes Specimens: [N/A] Implants: Synthes Drains: [N/A]
[2016-09-16] MEDS ORDERED: KETOROLAC TROMETHAMINE 30 MG/ML 1 ML VIAL IV PRN (19:41)
[2016-09-16] MEDS ORDERED: ACETAMINOPHEN 325 MG TABLET PO PRN (19:41)
[2016-09-16] MEDS ORDERED: SENNOSIDES 8.6 MG TABLET PO PRN (19:41)
[2016-09-16] MEDS ORDERED: FUROSEMIDE 20 MG TABLET PO PRN ×2 (19:41→21:10)
[2016-09-16] MEDS ORDERED: LISINOPRIL 20 MG TABLET PO SCH ×2 (21:00→23:25)
[2016-09-16] MEDS ORDERED: HYDROMORPHONE HCL 0.5 MG/0.5 ML SYRINGE IV PRN (21:12)
[2016-09-16] MEDS ORDERED: PUMP TUBING ONE (21:35)
[2016-09-16] MEDS: SODIUM CHLORIDE 0.9% 1,000 ML IV SCH (21:55)
[2016-09-16] MEDS: OXYCODONE HCL 5 MG TABLET PO PRN (22:30)
[2016-09-16] MEDS: CARVEDILOL 25 MG TABLET PO SCH (23:32)
[2016-09-17] MEDS: OXYCODONE HCL 5 MG TABLET PO PRN ×3 (02:40→11:31)
[2016-09-17 07:23] VITALS: BP 106/62
--- NOTE | 2016-09-17 07:46 | PDOC43 ---
- Subjective Subjective: Reports Pain Tolerable, Denies Shortness of Breath, Denies Nausea, Denies Vomiting, Denies Fever - Objective Vital Signs Temperature 97.8 F 09/17/16 07:18 Pulse Rate 64 09/17/16 07:18 Respiratory Rate 20 09/17/16 07:18 Blood Pressure 106/62 09/17/16 07:18 O2 Saturation by Pulse Oximetry 94 09/17/16 07:18 Oxygen Delivery Method Room Air Oxygen Flow Rate 0 Active Medication Orders Category Date Time Status Acetaminophen [Tylenol] Med 09/16/16 19:41 Active 650 mg PO Q6H PRN Aspirin (Enteric Coated) [Ecotrin] Med 09/17/16 09:00 Active 81 mg PO DAILY Carvedilol [Coreg] Med 09/16/16 21:00 Active 25 mg PO BID Furosemide [Lasix] Med 09/16/16 21:10 Active 20 mg PO BID PRN Hydromorphone HCl [Dilaudid] Med 09/16/16 19:41 Active 0.5 - 1 mg IV Q1H PRN Hydromorphone HCl [Dilaudid] Med 09/16/16 21:12 Active 0.5 - 1 mg IV Q1H PRN Ketorolac Tromethamine [Toradol] Med 09/16/16 19:41 Active 30 mg IV Q6H PRN Lisinopril [Prinivil] Med 09/16/16 23:25 Active 20 mg PO BEDTIME Ondansetron 4 mg/2ml Vial [Zofran] Med 09/16/16 19:41 Active 4 mg IV Q6H PRN Oxycodone HCl [Roxicodone] Med 09/16/16 19:41 Active 5 - 10 mg PO Q4H PRN Sennosides [Senokot] Med 09/16/16 19:41 Active 8.6 mg PO BID PRN Sodium Chloride 0.9% 1,000 ml Med 09/16/16 19:41 Active IV 75 mls/hr Sodium Chloride 0.9% Flush [Normal Saline 10ml Flush] Med 09/16/16 21:14 Active 10 ml IV PRN PRN Sodium Chloride 0.9% Flush [Normal Saline 10ml Flush] Med 09/17/16 01:00 Active 10 ml IV Q8HR Spironolactone [Aldactone] Med 09/17/16 09:00 Active 25 mg PO DAILY Intake and Output 09/15/16 09/16/16 09/17/16 23:59 23:59 23:59 Intake Total 2686 Output Total 50 Balance 2636 General: Afebrile HEENT: Atraumatic Lungs: Normal Air Movement Skin: Normal Color, Warm, Dry, Intact Neurological: Alert, Oriented x 4 Psych/Mental Status: Normal Affect, Normal Mood - Right Lower Extremity Incision: Dressing Clean/Dry/Intact (splint intact, gentle flexion/extension) - Problems (1) Bimalleolar fracture of right ankle Qualifiers: Encounter type: initial encounter Fracture type: closed Qualifier Code: (S82.841A) Displaced bimalleolar fracture of right lower leg, initial encounter for closed fracture Status: AcuteAssessment/Plan: doing well after surgery lat PM- will plan D/C back to SNF today. Instructions reviewed- needs to maintain NWB restrictionwhen up. ROutine splint care discussed. WIll f/u as outpatient in ~ 2 weeks unless concerns arise will proceed with blood draw today per protocol given needle stick during surgery
[2016-09-17] MEDS ORDERED: SPIRONOLACTONE 25 MG TABLET PO SCH (09:00)
[2016-09-17] MEDS ORDERED: ASPIRIN (ENTERIC COATED) 81 MG TABLET.EC PO SCH (09:00)
[2016-09-17 09:44] LABS: HIV-1/2 RAPID SCREEN NEGATIVE (NEGATIVE)
[2016-09-17] MEDS: CARVEDILOL 25 MG TABLET PO SCH (09:53)
[2016-09-17] MEDS: SODIUM CHLORIDE 0.9% 1,000 ML IV SCH (09:54)
--- NOTE | 2016-09-18 13:31 | OP ---
PADMINI BETTS [id number] : 1955 DATE OF SURGERY: September 16, 2016 PREOPERATIVE DIAGNOSIS: 1. Bimalleolar fracture-dislocation, right ankle. 2. Morbid obesity POSTOPERATIVE DIAGNOSIS: SAME PROCEDURE: 1. Open Reduction Internal Fixation Right Complex Medial Malleolus Fracture 2. Open Reduction Internal Fixation Right Complex Distal Fibular Fracture 3. Complexity secondary to super morbid obesity requiring additional time, expertise, personnel and equipment. SURGEON: Souleymane Solano M.D. DEBURRER: Van JAIME) ESTIMATED BLOOD LOSS: 50 cc ANESTHESIA: Spinal per Vincent TOURNIQUET TIME: 105 minutes FLUIDS: IV fluid placed per anesthesia. DRAINS: None COMPLICATIONS: None INDICATIONS: Patient is a 61-year-old, morbidly obese female who fell 09/02/16 sustaining a fracture-dislocation of the right ankle. Initially seen in the ER with attempts and reduction and splinting that were unsuccessful. She was subsequently taken to the OR and under anesthesia had reduction and placement of a Sugar-Tong splint. Soft tissues have improved and recommendation to proceed with ORIF. PAR conference was held, questions and concerns addressed and informed consent obtained. For additional details please refer to dictated preoperative H&P. PROCEDURAL DESCRIPTION: Patient was taken to the OR after placement of a spinal anesthetic. She was placed supine on the OR table, tourniquet was applied to the proximal thigh and the lower extremity prepped and draped out in the usual sterile fashion. Preoperative IV antibiotics were given empirically. Biplanar fluoroscopic imaging was utilized. After sterile prep and drape the leg was elevated and tourniquet inflated. Because of the extremely large size of her leg we augmented the tourniquet with a distal Esmarch to decrease the venous tourniquet effect. Initial longitudinal incision was made over the lateral distal leg starting at the lateral malleolus extending proximally. We dissected through subcutaneous tissue using cautery at this point and throughout the duration of the case to establish and maintain hemostasis. We bluntly dissected down to bone. This was quite osteopenic. Some organized and fibrous tissue was debrided. The oblique fracture was more clearly delineated and debrided of interstitial tissue. We then used a standard fracture reduction techniques to carefully reduce this in the anatomic position. Care was taken again given the significant osteopenic nature. I passed an anterior to posterior bicortical 3.5 screw in a lag fashion for initial fixation and then placed a 6-hole 1/3 semi-tubular locking plate posterolaterally. The proximal 3 holes were filled with bicortical 3.5 screws. We left the 4th hole open and the 5th with a bicortical screw and the 6th with a locking unicortical. Biplanar fluoroscopic imaging was obtained of this to confirm essentially anatomic reduction into the lateral column. We then turned our attention medially. I made an anteromedial approach with a curving oblique incision. We dissected through subcutaneous tissue. Saphenous vein was protected. Again there was organized fibrous tissue that was debrided. We could see the corner of the talus. There was a fairly significant stable ding on the stable chondral impaction on the talus. There was some comminution of the essentially transverse fracture fragment of distal medial tibia. We debrided the bone bed on both sides and reduced this with a combination of dental hook, clamp and blunt elevator. Once this had been done initially I held it with 2 small K-wires and then placed 2 roughly parallel 4-0 partially threaded cancellous screws with maintenance of reasonable reduction. There was slight comminution, but this was felt to be stable. Dynamic fluoroscopic imaging confirmed reasonable stability. There had obviously been some injury to the deltoid, but I was able to maintain reasonable reduction of the tibiotalar joint. Satisfied, we turned our attention towards closure. Both wounds were irrigated. We closed laterally with a couple of deep 2-0 Vicryl stitches to cover the plate, the subcutaneous tissue with interrupted 2-0 Vicryl and the skin with interrupted 4-0 nylon. Medially the wound was closed in layers with interrupted 2-0 Vicryl and interrupted 4-0 nylon. Eliza incisional injection with an additional 30cc of 0.50% Marcaine was performed. The tourniquet was released. The patient was placed into a well-padded posterior splint in near neutral dorsiflexion and slight inversion. She was then transferred to her hospital bed and sent to post anesthesia recovery in stable condition. She tolerated the procedure well. Sponge, instrument and needle counts were correct. ADRIEL/mrw CC: Harts Sanchez Ellison
[2016-09-28 21:06] LABS: HEPATITUS C VIRUS ANTIBODY Non React
== END 2016-09-17 12:05 ==
LOC: SDC 13:35 → MS 19:08 → SDC 09-17 12:05
PROVIDERS: ATTEND Emergency Medicine
PROC: 0QSJ04Z Reposition Right Fibula with Internal Fixation Device, Open Approach (ICD-10-PCS; principal; 2016-09-16)
PROC: 0QSG04Z Reposition Right Tibia with Internal Fixation Device, Open Approach (ICD-10-PCS; 2016-09-16)
DX: S82.841A Displaced bimalleolar fracture of right lower leg, initial encounter for closed fracture (principal); E66.01 Morbid (severe) obesity due to excess calories; Z68.43 Body mass index [BMI] 50.0-59.9, adult; Z79.82 Long term (current) use of aspirin; W10.8XXA Fall (on) (from) other stairs and steps, initial encounter; Y92.008 Other place in unspecified non-institutional (private) residence as the place of occurrence of the external cause; I10 Essential (primary) hypertension; J45.909 Unspecified asthma, uncomplicated; I42.9 Cardiomyopathy, unspecified; Z88.1 Allergy status to other antibiotic agents; Z88.5 Allergy status to narcotic agent; Z91.040 Latex allergy status; I83.91 Asymptomatic varicose veins of right lower extremity
CPT/HCPCS: 86703; 87340; 86803; 73600; 76000; 97530; 27814; A9270 ×6; J3010; J2795; J1885; J2250; J7120; J7030; J1170; J0690